=== PATIENT | male | born 1995 | race Caucasian/White ===

== ENCOUNTER 2020-10-16 18:29 | Emergency (ER) | payer SELFPAY ==
--- NOTE | 2020-10-16 19:22 | RAD ---
CHEST TWO VIEWS: 10/16/20 The heart is normal in size. The mediastinum shows no widening or shift. The lungs are fully inflated and clear. No gross fractures were identified. the trachea is midline. The visible thoracic vertebra e appear intact. IMPRESSION: No acute thoracic findings. POS: HOME
--- NOTE | 2020-10-16 19:25 | CT ---
CT OF THE CERVICAL SPINE 10/16/[address] of the cervical spine was done following trauma. No prior scans were available for comparison. No fracture, dislocation, or disc space narrowing was seen at any cervical level. The C1 to dens dis tance is normal and the soft tissues are normal in thickness. There was no sign of central canal or f oraminal stenosis. No grossly herniated discs were seen, however, MRI would be much more sensitive to such than the CT scan. The surrounding soft tissues were unremarkable. 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 IMPRESSION: No acute traumatic findings. Preliminary report called to Tara in ER at [id number] on 10/16/20. POS: HOME
[2020-10-16] MEDS ORDERED: Ibuprofen 800 MG TAB ONE (19:35)
[2020-10-16] MEDS ORDERED: Cyclobenzaprine 10 MG TAB ONE (19:35)
== END 2020-10-16 19:31 | disposition home or self-care (01) ==
LOC: BURERS 18:29
DX: M54.2 Cervicalgia (principal); M54.6 Pain in thoracic spine; V49.40XA Driver injured in collision with unspecified motor vehicles in traffic accident, initial encounter
CPT/HCPCS: 71046; 72125